=== PATIENT | female | born 1965 | race Caucasian/White ===

== ENCOUNTER 2016-12-10 19:14 | Emergency (ER) | payer OTHER ==
[2016-12-10 19:37] VITALS: BMI 33.3
[2016-12-10 21:16] LABS: BASOPHIL 0.4 % (0-2.0); EOSINOPHIL 1.1 % (0-4.5); MCH 30.4 pg (25.7-33.7); MCHC 34.1 g/dl (32.0-36.0); MEAN CELL VOLUME 89.2 fl (80-96); MEAN PLT VOLUME 8.8 fl (7.5-11.1); NEUTROPHILS 61.6 % (42.8-82.8); PLATELET COUNT 212 K/MM3 (134-434); RDW 13.2 % (11.6-15.6); WHITE BLOOD COUNT 8.9 K/mm3 (4.0-10.0)
[2016-12-10 21:49] LABS: ALBUMIN 3.3 g/dl (3.4-5.0); ANION GAP 9 (8-16); CALCIUM 8.4 mg/dL (8.5-10.1); CO2 27 mmol/L (21-32); CREATININE 0.6 mg/dL (0.55-1.02); GLUCOSE,RANDOM 91 mg/dL (74-106); SGOT/AST 14 U/L (15-37); SGPT/ALT 33 U/L (12-78)
[2016-12-10 21:53] LABS: ALK PHOS 127 U/L (45-117); BILIRUBIN,TOTAL 0.3 mg/dL (0.2-1.0); TOT PROT 6.3 g/dl (6.4-8.2); TROPONIN I < 0.02 ng/ml (0.00-0.05)
[2016-12-10 22:15] LABS: URINE APPEARANCE CLEAR; URINE BILIRUBIN NEGATIVE (NEGATIVE); URINE BLOOD NEGATIVE (NEGATIVE); URINE COLOR COLORLESS; URINE GLUCOSE (UA) NEGATIVE (NEGATIVE); URINE KETONE NEGATIVE (NEGATIVE); URINE LEUK ESTERASE NEGATIVE (NEGATIVE); URINE NITRITE NEGATIVE (NEGATIVE); URINE PROTEIN NEGATIVE (NEGATIVE); URINE UROBILINOGEN NEGATIVE E.U./dl (0.2-1.0)
--- NOTE | 2016-12-10 22:32 | PDOC ---
History of Present Illness - General Chief Complaint: Chest Pain Stated Complaint: PCP SENT/CHEST PAIN Time Seen by Provider: 12/10/16 19:59 History Source: Patient Exam Limitations: No Limitations - History of Present Illness Initial Comments: 12/10/16 22:28 51yo Female patient w/ PmHx: MO, TIA presents to ED c/o feeling weak for couple days, chest pains, dizziness, SOB, chills, vomiting and change in appetite for past couple days. Patient states she was sent by PCP for evaluation. LNMP: Hysterectomy. +smoker. Patient denies any other complaints at this time. Presenting Symptoms: Chest Pain, Vomiting Timing/Duration: reports: constant Severity/Quality: reports: mild, tightness Location: reports: central Chest Pain Radiation: denies: no radiation, jaw, arms, neck, shoulders, back, sternal notch, epigastric, other Prior Chest Pain/Cardiac Workup: reports: Heart Attack Modifying Factors: worse with: antacids, breathing, coughing, defecating, eating , exercise, lying down, morphine, movement, nitroglycerin, oxygen, palpation, rest, other Nitro Today/Relief: No: no nitro taken today, 0.4 mg x 1, 0.4 mg x 2, 0.4 mg x 3 , 0.4 mg x 4, provided by EMS, provided by ED, provided at home, no relief, mild relief, complete relief Aspirin Received prior to arrival (Core Measure): Yes: 81 mg x 1, provided at home Past History - Travel Traveled outside of the country in the last 30 days: No Close contact w/someone who was outside of country & ill: No - Past Medical History Allergies/Adverse Reactions: Allergies Allergy/AdvReac Type Severity Reaction Status Date / Time adhesive Allergy Rash Verified 12/10/16 19:34 Penicillins Allergy Hives Verified 12/10/16 19:34 metformin AdvReac Intermediate Rash Verified 12/10/16 19:34 Home Medications: Ambulatory Orders Insulin (Novolog 70/30) [Novolog Mix 70/30 Vial -] 50 unit SQ BID 02/23/16 Aclidinium [place] [Tudorza -] 1 puff PO BID #1 inhaler 02/27/16 Albuterol 0.083% Nebulizer Nieves [Ventolin 0.083% Nebulizer Soln -] 1 amp NEB Q4H PRN #60 amp 02/27/16 Albuterol Sulfate Inhaler - [Ventolin HFA Inhaler -] 1 - 2 inh PO Q4H #1 inhaler 02/27/16 Bupropion HCl [Wellbutrin Xl -] 150 mg PO DAILY #30 tab.sr.24h 02/27/16 Nebulizer [Compact Compressor Nebulizer] 1 each MC Q4H PRN #1 kit 02/27/16 Pantoprazole Sodium [Protonix -] 40 mg PO DAILY #7 tablet.ec 02/27/16 Trazodone HCl [Desyrel -] 50 mg PO HS #30 tablet 02/27/16 Valsartan [Diovan] 80 mg PO DAILY #30 tablet 02/27/16 Hydrocodone/Acetaminophen [Lortab 5-325 mg Tablet] 1 - 2 each PO QID #20 tablet MDD 8 pills 06/26/16 Acetaminophen [Tylenol] 650 mg PO Q4H PRN #20 tablet 08/22/16 Eluxadoline [Viberzi] 75 mg PO BID 08/22/16 Mag Hydrox/Al Hydrox/Simeth [Mylanta Suspension -] 30 ml PO Q6H PRN #1 bottle Ondansetron HCl [Zofran] 4 mg PO Q6H PRN #15 tablet 08/22/16 Ranitidine HCl [Zantac] 150 mg PO BID PRN #14 tablet 08/22/16 Asthma: Yes Diabetes: Yes GI Disorders: Yes (ACID REFLUX) HTN: Yes Hypercholesterolemia: Yes - Surgical History Cholecystectomy: Yes Neurologic Surgery: Yes (lumbar fusion) Orthopedic Surgery: Yes (RT knee) - Immunization History Immunization Up to Date: Yes - Psycho/Social/Smoking Cessation Hx Anxiety: No Suicidal Ideation: No Smoking History: Current every day smoker Have you smoked in the past 12 months: Yes Number of Cigarettes Smoked Daily: 5 Information on smoking cessation initiated: No 'Breaking Loose' booklet given: 06/26/16 Hx Alcohol Use: No Drug/Substance Use Hx: No Substance Use Type: None Hx Substance Use Treatment: No Cardiac Specific PMH - Complaint Specific PMHX Abdominal Aortic Aneurysm: No Angina: No Cardiac Arrhythmia: No Cardiac Stent: No GERD: No Myocardial Infarction: Yes Pacemaker: No Pulmonary Embolus: No Valvular Heart Disease: No Peripheral Vascular Disease: No Review of Systems - Review of Systems Able to Perform ROS?: Yes Is the patient limited [place] proficient: No Constitutional: Yes: Chills, Weakness. No: Fever Respiratory: No: Cough, Shortness of Breath, Stridor, Wheezing Cardiac (ROS): Yes: Chest Pain, Chest Tightness. No: Edema, Lightheadedness, Palpitations, Syncope ABD/GI: No: Diarrhea, Nausea, Poor Appetite, Poor Fluid Intake, Vomiting : No: Burning, Dysuria, Flank Pain, Hematuria, Urgency Musculoskeletal: No: Back Pain Integumentary: No: Bruising, Erythema, Rash Neurological: Yes: Dizziness. No: Headache, Numbness, Paresthesia, Seizure, Tingling, Tremors, Weakness, Ataxia Psychiatric: Yes: Change in Appetite All Other Systems: Reviewed and Negative *Physical Exam - Vital Signs Last Vital Signs Temp Pulse Resp BP Pulse Ox 97.7 F 80 20 152/72 97 12/10/16 19:34 12/10/16 19:34 12/10/16 19:34 12/10/16 19:34 12/10/16 19:34 - Physical Exam General Appearance: Yes: Nourished, Appropriately Dressed. No: Apparent Distress, Mild Distress, Moderate Distress, Severe Distress HEENT: positive: EOMI, GUY, Normal ENT Inspection, Normal Voice, Symmetrical, TMs Normal, Pharynx Normal. negative: Pharyngeal Erythema, Tonsillar Exudate, Tonsillar Erythema, Nasal Congestion, Rhinorrhea, TM Bulging, TM Dull, TM Erythema Neck: positive: Trachea midline, Normal Thyroid, Supple. negative: Lymphadenopathy (R), Lymphadenopathy (L) Respiratory/Chest: positive: Lungs Clear, Normal Breath Sounds. negative: Respiratory Distress, Accessory Muscle Use, Labored Respiration, Rapid RR, Stridor, Wheezing Cardiovascular: positive: Regular Rhythm, Regular Rate. negative: Edema, JVD, Murmur Gastrointestinal/Abdominal: positive: Normal Bowel Sounds, Soft, Distended. negative: Guarding, Rebound, Tenderness Musculoskeletal: positive: Normal Inspection. negative: CVA Tenderness Extremity: positive: Normal Capillary Refill, Normal Inspection, Normal Range of Motion Integumentary: positive: Normal Color, Dry, Warm Neurologic: positive: corn husk baler II-XII NML intact, Fully Oriented, Alert, Normal Mood/ Affect, Normal Response, Motor Strength 01/09 ED Treatment Course - LABORATORY CBC & Chemistry Diagram: 12/10/16 21:05 12/10/16 21:05 - ADDITIONAL ORDERS Additional order review: Laboratory Results 12/11/16 12/10/16 12/10/16 02:00 22:00 21:05 Sodium 142 Potassium 3.6 Chloride 106 Carbon Dioxide 27 Anion Gap 9 BUN 14 Creatinine 0.6 Creat Clearance w eGFR > 60 Random Glucose 91 D Calcium 8.4 L Total Bilirubin 0.3 D AST 14 L D ALT 33 Alkaline Phosphatase 127 H Creatine Kinase 57 Troponin I < 0.02 < 0.02 Total Protein 6.3 L Albumin 3.3 L Urine Color Colorless Urine Appearance Clear Urine pH 5.0 Ur Specific [place] 1.025 Urine Protein Negative Urine Glucose (UA) Negative Urine Ketones Negative Urine Blood Negative Urine Nitrite Negative Urine Bilirubin Negative Urine Urobilinogen Negative Ur Leukocyte Esterase Negative Urine HCG, Qual Negative 12/10/16 21:05 RBC 4.46 MCV 89.2 MCHC 34.1 RDW 13.2 MPV 8.8 Neutrophils % 61.6 Lymphocytes % 28.8 D Monocytes % 8.1 Eosinophils % 1.1 Basophils % 0.4 - RADIOLOGY Radiology Studies Ordered: Category Date Time Status HEAD CT WITHOUT CONTRAST [CT] Stat CT Scan 12/10/16 22:37 Taken CHEST PA & LAT [RAD] Stat Radiology 12/10/16 20:16 Taken *DC/Admit/Observation/Transfer Diagnosis at time of Disposition: Chest pain Qualifiers: Chest pain type: intercostal pain Qualified Code(s): R07.82 - Intercostal pain - Discharge Dispostion Disposition: HOME Condition at time of disposition: Improved Admit: No - Patient Instructions Printed Discharge Instructions: DI for Atypical Chest Pain Additional Instructions: FOLLOW UP WITH DR. URRUTIA TO DISCUSS FURTHER EVALUATION. MOTRIN OR TYLENOL FOR PAIN NEEDED. GET REST. DRINK PLENTY FLUIDS. Print Language: VENE[place]EL[place] - Post Discharge Activity Work/School Note: Back to Work
--- NOTE | 2016-12-10 23:20 | PDOC ---
*Physical Exam - Vital Signs Last Vital Signs Temp Pulse Resp BP Pulse Ox 97.7 F 80 20 152/72 97 12/10/16 19:34 12/10/16 19:34 12/10/16 19:34 12/10/16 19:34 12/10/16 19:34 ED Treatment Course - LABORATORY CBC & Chemistry Diagram: 12/10/16 21:05 12/10/16 21:05 - ADDITIONAL ORDERS Additional order review: Laboratory Results 12/10/16 12/10/16 22:00 21:05 Sodium 142 Potassium 3.6 Chloride 106 Carbon Dioxide 27 Anion Gap 9 BUN 14 Creatinine 0.6 Creat Clearance w eGFR > 60 Random Glucose 91 D Calcium 8.4 L Total Bilirubin 0.3 D AST 14 L D ALT 33 Alkaline Phosphatase 127 H Creatine Kinase 57 Troponin I < 0.02 Total Protein 6.3 L Albumin 3.3 L Urine Color Colorless Urine Appearance Clear Urine pH 5.0 Ur Specific [place] 1.025 Urine Protein Negative Urine Glucose (UA) Negative Urine Ketones Negative Urine Blood Negative Urine Nitrite Negative Urine Bilirubin Negative Urine Urobilinogen Negative Ur Leukocyte Esterase Negative Urine HCG, Qual Negative 12/10/16 21:05 RBC 4.46 MCV 89.2 MCHC 34.1 RDW 13.2 MPV 8.8 Neutrophils % 61.6 Lymphocytes % 28.8 D Monocytes % 8.1 Eosinophils % 1.1 Basophils % 0.4 Medical Decision Making - Medical Decision Making 12/10/16 23:20 agree with care from KAVEH Barreto 12/11/16 19:54 Dr. Hernandez: The scribe's documentation has been prepared under my direction and personally reviewed by me in its entirery. I confirm that the note above accurately reflects all work, treatment, procedures, and medical decision making performed by me. *DC/Admit/Observation/Transfer Diagnosis at time of Disposition: Chest pain - Discharge Dispostion Disposition: HOME Condition at time of disposition: Improved - Referrals Referrals: Micah Urrutia MD [Primary Care Provider] - - Patient Instructions Printed Discharge Instructions: DI for Atypical Chest Pain Additional Instructions: FOLLOW UP WITH DR. URRUTIA TO DISCUSS FURTHER EVALUATION. MOTRIN OR TYLENOL FOR PAIN NEEDED. GET REST. DRINK PLENTY FLUIDS. Print Language: PORTUGUESE - Post Discharge Activity Work/School Note: Back to Work
[2016-12-11 05:14] VITALS: BP 138/72; PULSE 76; TEMP 98
--- NOTE | 2016-12-17 12:36 | EKG ---
Test Reason : Blood Pressure : / mmHG Vent. Rate : 069 BPM Atrial Rate : 069 BPM P-R Int : 156 ms QRS Dur : 090 ms QT Int : 394 ms P-R-T Axes : 063 048 022 degrees QTc Int : 422 ms NORMAL SINUS RHYTHM WITH SINUS ARRHYTHMIA NONSPECIFIC ST AND T WAVE ABNORMALITY ABNORMAL ECG WHEN COMPARED WITH ECG OF 21-FEB-2016 21:39, NO SIGNIFICANT CHANGE WAS FOUND Confirmed by ARCELIA MORALES, ISAMAR ([id number]) on 12/17/2016 12:35:52 PM Referred By: Confirmed By:ISAMAR PANIAGUA MD
== END 2016-12-11 05:14 | disposition home or self-care (01) ==
LOC: JER 19:14
DX: R07.82 Intercostal pain (principal); I25.10 Atherosclerotic heart disease of native coronary artery without angina pectoris; I10 Essential (primary) hypertension; I25.2 Old myocardial infarction; Z86.69 Personal history of other diseases of the nervous system and sense organs; E11.9 Type 2 diabetes mellitus without complications; Z79.4 Long term (current) use of insulin; E78.00 Pure hypercholesterolemia, unspecified; J45.909 Unspecified asthma, uncomplicated
CPT/HCPCS: 36415; 70450-TC; 71020-TC; 80053; 81003; 82550; 84484; 84703; 85025; 93005; 93010; 99285-25